=== PATIENT | female | born 1960 | race Caucasian/White ===

== ENCOUNTER 2022-11-24 14:19 | Emergency (ER) | payer MEDICAID ==
[~2022-11-24] VITALS: Ht 154.9 cm; Wt 65.8 kg
--- NOTE | 2022-11-24 14:25 | NUR ---
BIB [facility] 62 FROM HOME C/O DIZZINESS X1DAY, PT HAS HX OF VERTIGO DENIES NAUSEA AND VOMITING
[2022-11-24] MEDS ORDERED: IV NS 0.9% 1,000 ML BAG IV ONE (15:00)
--- NOTE | 2022-11-24 15:00 | NUR ---
NEEDS ATTENDED , NO SIGNS AND SYMPTOMS OF DISTRESS. PATIENT AWAKE AND SITTING COMFORTABLY. VITAL SIGN STABLE. AWAITING FOR REPEAT TROPONIN
[2022-11-24 15:21] LABS: BASOPHILS % (AUTO) 0.5 % (0.0-2.0); EOSINOPHILS % (AUTO) 1.4 % (0.0-6.0); HEMATOCRIT 45 % (33-45); HEMOGLOBIN 15.1 g/dL (11.5-14.8); LYMPHOCYTES # (AUTO) 0.9 K/uL (0.8-4.8); MEAN CORPUSCULAR HGB CONC 34 g/dl (31.0-36.0); MEAN CORPUSCULAR VOLUME 90 fL (82-100); MONOCYTES # (AUTO) 0.4 K/uL (0.1-1.30); MONOCYTES % (AUTO) 5.7 % (2.0-12.0); NEUTROPHILS # (AUTO) 4.8 K/uL (1.8-8.9); NEUTROPHILS % (AUTO) 77.4 % (43.0-81.0); PLATELET COUNT (AUTO) 161 K/uL (150-450); RED BLOOD CELL COUNT(AUTO) 5.01 MIL/uL (4.0-5.2); WHITE BLOOD COUNT (AUTO) 6.2 K/uL (4.3-11.0)
[2022-11-24 15:28] LABS: CARBON DIOXIDE 30 mmol/L (21-32); CHLORIDE 104 mmol/L (98-107); CREATININE 0.8 mg/dL (0.6-1.3); GLUCOSE 102 mg/dL (74-106); POTASSIUM 3.5 mmol/L (3.5-5.1); SODIUM SERUM 138 mmol/L (136-145); UREA NITROGEN, BLOOD 12 mg/dL (7-18)
[2022-11-24 15:33] LABS: CALCIUM, SERUM 8.9 mg/dL (8.5-10.1)
[2022-11-24 18:24] VITALS: BP 131/61
--- NOTE | 2022-11-24 18:24 | NUR ---
IV removed. Catheter intact and site benign. Pressure and 4x4 applied to site. No bleeding noted.
--- NOTE | 2022-11-24 18:24 | NUR ---
Patient discharged to home in stable condition. Written and verbal after care instructions given. Patient verbalizes understanding of instruction.
--- NOTE | 2022-11-30 13:22 | NUR ---
addendum for 11/24/22. 0.9 NS 1000ml , started at 1500 and IV end time at 1600
== END 2022-11-24 18:25 | disposition home or self-care (01) ==
LOC: ER 14:24
DX: R42 Dizziness and giddiness (principal); I10 Essential (primary) hypertension
CPT/HCPCS: 99284; 96360; 93005; 85025; 80048; 36415; 84484 ×2; A4223; J7030